=== PATIENT | female | born 1990 | race Native Hawaiian/Other Pacific Islander ===

== ENCOUNTER 2018-06-28 22:02 | Emergency (ER) | payer BC ==
[2018-06-28 22:10] VITALS: O2SAT 99
[2018-06-28] MEDS ORDERED: DiphenhydrAMINE 50 mg/ml Inj IVP STA (22:18)
[2018-06-28] MEDS ORDERED: Sodium Chloride 0.9% 1,000 ML IV SCH (22:30)
[2018-06-28] MEDS ORDERED: DiphenhydrAMINE 50 mg/ml Inj ONE (22:37)
--- NOTE | 2018-06-28 22:37 | ED PDOC ---
HPI: Headache Time Seen by Provider: 06/28/18 22:18 Chief Complaint (Nursing): Headache Chief Complaint (Provider): Headache History Per: Patient, Family History/Exam Limitations: no limitations Onset/Duration Of Symptoms: Hrs (two), Sudden Onset Current Symptoms Are (Timing): Still Present Severity: Mild Quality: Sharp Preceeding Symptoms: denies: Visual Disturbances, Known Migraine Symptoms Associated Symptoms: Nausea. denies: Blurred Vision, Vomiting (Pt presents to the ED complaining of a right sided headache for the past two hours after having been diagnosed with Otitis Media on the left side yesterday. The patient has taken two doses of augmentin) Past Medical History Reviewed: Historical Data, Nursing Documentation, Vital Signs Vital Signs: Last Vital Signs Temp 98.6 F 06/28/18 22:06 Pulse 85 06/28/18 22:06 Resp 16 06/28/18 22:06 BP 120/78 06/28/18 22:06 Pulse Ox 99 06/28/18 22:06 - Family History Family History: States: Unknown Family Hx - Home Medications Home Medications: Ambulatory Orders Medication Instructions Recorded Ondansetron ODT [Zofran ODT] 4 mg PO PRN PRN #10 odt 06/28/18 - Allergies Allergies/Adverse Reactions: Allergies Allergy/AdvReac Type Severity Reaction Status Date / Time No Known Allergies Allergy Verified 06/28/18 22:10 Review of Systems ROS Statement: Except As Marked, All Systems Reviewed And Found Negative Gastrointestinal: Positive for: Nausea Neurological: Positive for: Headache Physical Exam - Reviewed Nursing Documentation Reviewed: Yes Vital Signs Reviewed: Yes - Physical Exam Appears: Positive for: Well, Non-toxic, No Acute Distress. Negative for: Uncomfortable Head Exam: Positive for: ATRAUMATIC, NORMAL INSPECTION, NORMOCEPHALIC Skin: Positive for: Normal Color, Warm, Dry. Negative for: Diaphoresis, Pallor, Rash Eye Exam: Positive for: Normal appearance, EOMI, PERRL. Negative for: Nystagmus, Periorbital swelling, Periorbital tenderness, Conjunctival injection, Scleral icterus ENT: Positive for: TM Is/Are (on the right intact, there is mild erythemity surrounding the deeper canal and minor retraction), Nasal Congestion Neck: Positive for: Normal, Painless ROM, Supple. Negative for: Decreased ROM Cardiovascular/Chest: Positive for: Regular Rate, Rhythm Respiratory: Positive for: Normal Breath Sounds Pulses-Carotid (L): 2+ Pulses-Carotid (R): 2+ Pulses-Radial (L): 2+ Pulses-Radial (R): 2+ - Laboratory Results Result Diagrams: 06/28/18 22:55 06/28/18 22:55 - ECG O2 Sat by Pulse Oximetry: 99 Medical Decision Making Medical Decision Making: CBC CMP each show no results of clinical significance Fluids IV Benadryl, zofran, toradol and PO apap Pt is stable and headache has been remedied. Pt is in no further need of treatment at this facility. Pt will be discharged with rx of zofran Disposition - Clinical Impression Clinical Impression: Headache, Otitis media - Patient ED Disposition Is Patient to be Admitted: No Doctor Will See Patient In The: Office Counseled Patient/Family Regarding: Diagnosis, Need For Followup - Disposition [facility] [Outside] Disposition: Routine/Home Disposition Time: 23:29 Condition: STABLE Prescriptions: Ondansetron ODT [Zofran ODT] 4 mg PO PRN PRN #10 odt PRN Reason: Nausea/Vomiting Instructions: Ear Infections (Otitis Media), Headache, Adult, Ear Infections (Otitis Media) (DC), Headache, Adult (DC) Forms: [employer] (Occitan)
[2018-06-28 22:57] LABS: BASO % 0.5 % (0.0-2.0); EOS # 0.2 K/uL (0.0-0.7); EOS % 2.6 % (0.0-4.0); HEMOGLOBIN 11.1 g/dL (12.0-16.0); LYMPH % 34.6 % (20.0-40.0); MEAN CELL VOLUME 77.9 fl (81.0-99.0); MEAN CORPUSCULAR HEMOGLOBIN 25.2 pg (27.0-31.0); MEAN CORPUSCULAR HGB CONC 32.4 g/dL (33.0-37.0); MEAN PLATELET VOLUME 9.2 fl (7.2-11.7); MONO # 0.6 K/uL (0.0-0.8); NEUT # 4.8 K/uL (1.8-7.0); NEUT % 55.3 % (50.0-75.0); NRBC % 0.1 % (0.0-0.0); RBC 4.4 Mil/uL (3.80-5.20); RED CELL DISTRIBUTION WIDTH 15.4 % (11.5-14.5); WHITE BLOOD COUNT 8.6 K/uL (4.8-10.8)
[2018-06-28 23:13] LABS: ALB/GLOB RATIO 1.2 (1.0-2.1); ALBUMIN 4.3 g/dL (3.5-5.0); ALT/SGPT 25 U/L (9-52); AST/SGOT 20 U/L (14-36); BLOOD UREA NITROGEN 13 mg/dl (7-17); CALCIUM 9.6 mg/dL (8.4-10.2); GFR NON-AFRICAN AMERICAN > 60
[2018-06-29 00:04] VITALS: BP 118/76; PULSE 78; RESP 18; TEMP 98.2
== END 2018-06-29 00:06 | disposition home or self-care (01) ==
LOC: H.ER 22:02
DX: R51 Headache (principal); H66.90 Otitis media, unspecified, unspecified ear
CPT/HCPCS: 80053; 85025; 96374; 96375; 99283; J1200; J1885; J2405; J7030